=== PATIENT | male | born 1965 | race Caucasian/White ===

== ENCOUNTER 2018-09-21 07:40 | Inpatient (IN) ==
[2018-09-21] MEDS ORDERED: LORazepam 2 MG/4 ML VIAL IV STA (08:26)
[2018-09-21] MEDS ORDERED: MULTI-VITAMIN INFUSION 10 ML, THIAMINE HCL 100 MG, FOLIC ACID 1 MG in SODIUM CHLORIDE 0... IV SCH (08:30)
[2018-09-21 08:37] LABS: Basophils # (auto) 0.12 K/uL (0-0.2); Basophils % (auto) 1.9 %; Eosinophils # (auto) 0.05 K/uL (0-0.5); Eosinophils % (auto) 0.8 %; Hematocrit (blood only) 44.8 % (42-52); Hemoglobin 16.1 g/dL (14.0-18.0); Immature Granulocytes # (auto) 0.01 K/uL (0.00-0.02); Immature Granulocytes % (auto) 0.2 %; Lymphocytes # (auto) 2.42 K/uL (1.2-3.4); Lymphocytes % (auto) 38.2 %; Mean Corpuscular Hgb Conc 35.9 g/dL (32-36); Mean Corpuscular Volume 93.5 fL (80-100); Mean Platelet Volume 8.6 fL (7.4-10.4); Monocytes # (auto) 0.51 K/uL (0.11-0.59); Neutrophils # (auto) 3.23 K/uL (1.4-6.5); Neutrophils % (auto) 50.9 %; Platelet Count 215 K/uL (130-400); RDW Coefficient of Variation 14.8 % (11.5-14.5); RDW Standard Deviation 50.6 fL (36.4-46.3); Red Blood Count 4.79 M/uL (4.7-6.1); White Blood Count 6.34 K/uL (4.8-10.8)
[2018-09-21 08:55] LABS: Albumin Level 3.7 gm/dl (3.4-5.0); BUN Creatinine Ratio 11.5 (10-20); Calcium 8.3 mg/dl (8.5-10.1); Creatinine Clr Calc Pharmacy 89.6 ml/min; Est GFR (African American) 92.7; Potassium 3.3 mmol/L (3.5-5.1)
--- NOTE | 2018-09-21 08:59 | Emergency Department Note ---
Entered by Cassy Magana acting as a scribe for History of Present Illness General Chief complaint: Mental Health Evaluation Stated complaint: WANTS TO KILL HIS SELF Time Seen by Provider: 09/21/18 08:04 Source: patient Mode of arrival: ambulatory Limitations: no limitations History of Present Illness Onset (ago): day(s) 6 Location: head (psych) Pain Consistency: + other (worsening) Quality: + other (psych, suicidial ideation) Associated symptoms: + other (The patient complains of suicidial ideation. ) The patient is a 53 year old male with a history of suicide attempt and alcohol abuse who presents to the ED with complaints of a worsening mental health issue that onset 6 days ago. He notes that he was brought to the ED by his landlord after speaking to him about his suicidal ideation. The patient states that he just wants to commit suicide. He notes that he quit his job in a [employer] shop 6 days ago due to a problem with his coworker and his drinking problem. The patient reports that he is not sure what to do with himself. He notes that he went into his car yesterday, which was parked outside with the windows up. He states that he put a sock into the tailpipe hoping to poison himself with carbon monoxide. The patient reports that he was in the car for 12 hours and it did not work. He states that he drinks a liter of vodka every day and has been doing this for years. He reports that his last drink was 2 hours ago. The patient denies drug use. The patient states that he does not eat much. Home Medications Home Medications Medication Instructions Recorded Confirmed Type citalopram [Celexa] 40 mg PO HS 06/26/18 09/21/18 History trazodone 50 mg PO HS PRN 06/26/18 09/21/18 History Allergies Allergy/AdvReac Type Severity Reaction Status Date / Time No Known Allergies Allergy Unverified 09/21/18 10:46 Past Med/Surg History Medical History Suicide attempt Suicide ideation Alcohol abuse (Acute) No pertinent family history Surgical History No pertinent past surgical history Family History Other No pertinent family history Social History Preferred Language: Singaporean Communication Ability: Effective Visual Impairment: No Limitations Hearing Ability: Normal current occupational status: unemployed Feels Safe at Home: Yes Smoking Status: Never smoker Hx Alcohol Use: Yes Hx Substance Use: No Review of Systems See HPI for pertinent positives & negatives. and A total of 10 systems reviewed and were otherwise negative Physical Exam Vital Signs Vital Signs - 24 hr 09/21/18 07:43 09/21/18 08:03 09/21/18 13:15 Temperature 36.7 C Temperature Source Oral Oral Sepsis Recent Fever Within 48 Hours No Sepsis New/Unexplained Change in Mental Status No Sepsis Action Taken by Nursing No Action Required Pulse Rate 146 H Pulse Rate [Apical] 88 Respiratory Rate 20 20 Blood Pressure 122/81 Blood Pressure [Left Arm] 124/81 Blood Pressure Mean 94 Blood Pressure Mean [Left Arm] 95 Pulse Oximetry 95 97 Oxygen Delivery Method Room Air Room Air 09/21/18 15:09 Temperature Temperature Source Sepsis Recent Fever Within 48 Hours Sepsis New/Unexplained Change in Mental Status Sepsis Action Taken by Nursing Pulse Rate Pulse Rate [Apical] 133 H Respiratory Rate 18 Blood Pressure Blood Pressure [Left Arm] 138/88 Blood Pressure Mean Blood Pressure Mean [Left Arm] 104 Pulse Oximetry 97 Oxygen Delivery Method Room Air CONSTITUTIONAL/VITAL SIGNS: Reviewed / noted above. GENERAL: Non-toxic in appearance. INTEGUMENTARY: Warm, dry, and [place]. HEAD: Normocephalic. EYES: without scleral icterus or trauma. ENT/OROPHARYNX: clear and moist. LYMPHADENOPATHY/NECK: Is supple without lymphadenopathy or meningismus. RESPIRATORY: Lungs clear and equal. CARDIOVASCULAR: Regular rate and rhythm. GI/ABDOMEN: Soft and nontender. No organomegaly or pulsatile mass. No rebound or guarding. Normal bowel sounds. EXTREMITIES: Warm and well perfused. BACK: No CVA tenderness. NEUROLOGICAL: Intact without focal deficits. PSYCHIATRIC: normal affect. MUSCULOSKELETAL: Normally developed with good muscle tone. Course 08: Past medical records reviewed. The patient was evaluated in room A06. A complete history and physical examination was performed. 1500: The patient was signed out to Dr. Ac at the change of shifts. Administered Medications Discontinued Medications Lorazepam (Ativan) 2 mg in 4 mls @ 4 mls/min IV NOW STA Stop: 09/21/18 08:27 Last Admin: 09/21/18 09:44 Dose: 4 mls/min Documented by: [id number] Multivitamins 10 ml/ Thiamine HCl 100 mg/ Folic Acid 1 mg/Sodium Chloride 1,011.2 mls @ 1,011.2 mls/hr IV .Q1H RADHA Stop: 09/21/18 09:29 Last Infusion: 09/21/18 11:13 Dose: 0 mls/hr Documented by: [id number] Admin: 09/21/18 09:44 Dose: 1,011.2 mls/hr Documented by: [id number] Medical Decision Making Differential Diagnosis Differential diagnoses Mood disorder, infection, hypoglycemia, electrolyte abnormalities, cardiac sources, intracerebral event, toxicologic, neurologic, as well as others etiologies were considered. Medical Records Attestation: I reviewed the patient's medical records. Home Medications Current Medication List: was personally reviewed by me Laboratory Data Attestation: I reviewed the patient's lab results. Result diagrams: 09/21/18 08:10 09/21/18 08:10 Lab Results 09/21/18 09/21/18 09/21/18 Range/Units 08:10 08:10 08:10 WBC 6.34 (4.8-10.8) K/uL RBC 4.79 (4.7-6.1) M/uL Hgb 16.1 (14.0-18.0) g/dL Hct 44.8 (42-52) % MCV 93.5 (80-100) fL MCH 33.6 (25-34) pg MCHC 35.9 (32-36) g/dL RDW Std Deviation 50.6 H (36.4-46.3) fL RDW Coeff of Lorie 14.8 H (11.5-14.5) % Plt Count 215 (130-400) K/uL MPV 8.6 (7.4-10.4) fL Immature Gran % (Auto) 0.2 % Neut % (Auto) 50.9 % Lymph % (Auto) 38.2 % Craven % (Auto) 8.0 % Eos % (Auto) 0.8 % Baso % (Auto) 1.9 % Immature Gran # (Auto) 0.01 (0.00-0.02) K/uL Neut # (Auto) 3.23 (1.4-6.5) K/uL Lymph # (Auto) 2.42 (1.2-3.4) K/uL Craven # (Auto) 0.51 (0.11-0.59) K/uL Eos # (Auto) 0.05 (0-0.5) K/uL Baso # (Auto) 0.12 (0-0.2) K/uL Sodium 147 H (136-145) mmol/L Potassium 3.3 L (3.5-5.1) mmol/L Chloride 108 H (98-107) mmol/L Carbon Dioxide 21 (21-32) mmol/L Anion Gap 18.0 H (3-11) BUN 12 (7-18) mg/dl Creatinine 1.07 (0.6-1.4) mg/dl Est Cr Clr Drug Dosing 89.6 ml/min Est GFR ( Amer) 92.7 Est GFR (Non-Af Amer) 80.0 BUN/Creatinine Ratio 11.5 (10-20) Glucose 75 (70-99) mg/dl Calcium 8.3 L (8.5-10.1) mg/dl Total Bilirubin 0.6 (0.2-1) mg/dl AST 28 (15-37) U/L ALT 41 (12-78) U/L Alkaline Phosphatase 71 (45-117) U/L Total Protein 7.9 (6.4-8.2) gm/dl Albumin 3.7 (3.4-5.0) gm/dl Globulin 4.2 H (2.5-4.0) gm/dl Albumin/Globulin Ratio 0.9 (0.9-2) TSH 1.510 (0.300-4.500) uIu/ml Urine Color Urine Appearance (Clear) Urine pH (4.5-7.5) Ur Specific Cheney (1.000-1.030) Urine Protein (Negative) Urine Glucose (UA) (Negative) Urine Ketones (Negative) Urine Blood (Negative) Urine Nitrite (Negative) Urine Bilirubin (Negative) Urine Urobilinogen (Negative) Ur Leukocyte Esterase (Negative) Urine WBC (Auto) (0-5) /hpf Urine RBC (Auto) (0-4) /hpf U Hyaline Cast (Auto) (0-5) /lpf U Epithel Cells (Auto) (0-5) /lpf Urine Bacteria (Auto) (Negative) Urine Mucus (None Prsent) Salicylates 1.7 L (2.8-20) mg/dl Urine Opiates Screen (Neg) Ur Methadone, Qual (Neg) Acetaminophen < 2 L (10-30) ug/ml Urine Barbiturates (Neg) Ur Phencyclidine (PCP) (Neg) U Amphetamin/Meth Scrn (Neg) MDMA (Ecstasy) Screen (Neg) U Benzodiazepines Scrn (Neg) Ur Cocaine Metabolite (Neg) U Marijuana (THC) Screen (Neg) Ethyl Alcohol mg/dL (0-3) mg/dl 09/21/18 09/21/18 09/21/18 Range/Units 08:15 08:15 09:24 WBC (4.8-10.8) K/uL RBC (4.7-6.1) M/uL Hgb (14.0-18.0) g/dL Hct (42-52) % MCV (80-100) fL MCH (25-34) pg MCHC (32-36) g/dL RDW Std Deviation (36.4-46.3) fL RDW Coeff of Lorie (11.5-14.5) % Plt Count (130-400) K/uL MPV (7.4-10.4) fL Immature Gran % (Auto) % Neut % (Auto) % Lymph % (Auto) % Craven % (Auto) % Eos % (Auto) % Baso % (Auto) % Immature Gran # (Auto) (0.00-0.02) K/uL Neut # (Auto) (1.4-6.5) K/uL Lymph # (Auto) (1.2-3.4) K/uL Craven # (Auto) (0.11-0.59) K/uL Eos # (Auto) (0-0.5) K/uL Baso # (Auto) (0-0.2) K/uL Sodium (136-145) mmol/L Potassium (3.5-5.1) mmol/L Chloride (98-107) mmol/L Carbon Dioxide (21-32) mmol/L Anion Gap (3-11) BUN (7-18) mg/dl Creatinine (0.6-1.4) mg/dl Est Cr Clr Drug Dosing ml/min Est GFR ( Amer) Est GFR (Non-Af Amer) BUN/Creatinine Ratio (10-20) Glucose (70-99) mg/dl Calcium (8.5-10.1) mg/dl Total Bilirubin (0.2-1) mg/dl AST (15-37) U/L ALT (12-78) U/L Alkaline Phosphatase (45-117) U/L Total Protein (6.4-8.2) gm/dl Albumin (3.4-5.0) gm/dl Globulin (2.5-4.0) gm/dl Albumin/Globulin Ratio (0.9-2) TSH (0.300-4.500) uIu/ml Urine Color Dark Yellow Urine Appearance Clear (Clear) Urine pH 5.0 (4.5-7.5) Ur Specific Cheney 1.022 (1.000-1.030) Urine Protein Trace H (Negative) Urine Glucose (UA) Negative (Negative) Urine Ketones 1+ H (Negative) Urine Blood Negative (Negative) Urine Nitrite Negative (Negative) Urine Bilirubin Negative (Negative) Urine Urobilinogen Negative (Negative) Ur Leukocyte Esterase Negative (Negative) Urine WBC (Auto) 1-5 (0-5) /hpf Urine RBC (Auto) 0-4 (0-4) /hpf U Hyaline Cast (Auto) 5-10 H (0-5) /lpf U Epithel Cells (Auto) 10-20 H (0-5) /lpf Urine Bacteria (Auto) Negative (Negative) Urine Mucus Present A (None Prsent) Salicylates (2.8-20) mg/dl Urine Opiates Screen Neg (Neg) Ur Methadone, Qual Neg (Neg) Acetaminophen (10-30) ug/ml Urine Barbiturates Neg (Neg) Ur Phencyclidine (PCP) Neg (Neg) U Amphetamin/Meth Scrn Neg (Neg) MDMA (Ecstasy) Screen Neg (Neg) U Benzodiazepines Scrn Neg (Neg) Ur Cocaine Metabolite Neg (Neg) U Marijuana (THC) Screen Neg (Neg) Ethyl Alcohol mg/dL 328.0 H (0-3) mg/dl ECG Data Attestation: I personally reviewed and interpreted this ECG as follows: Indication: tachycardia Rate (beats per minute): 103 Rhythm: sinus tachycardia Findings: no ST elevation and no ectopy Blood Pressure Blood Pressure Findings: Normal blood pressure MDM Narrative sThis is a 53-year-old male who presents to the ED with a chief complaint of feeling suicidal. The patient is an alcoholic. He states that he drinks about 1 L of vodka daily. The patient states that he quit his job 6 days ago. He was trying to commit suicide yesterday by putting a sock in his tailpipe and stayed in his car with his windows up for about 12 hours. He states that after he figured out that this did not work, he went into the house. His landlord saw him this morning and encouraged him to come to the ED for evaluation. The patient states that his last alcohol consumption was 2 hours ago. The patient denies any other symptoms. His initial heart rate was 146 on triage. His twelve-lead EKG shows a sinus tach at a rate of 103. The patient was provided with a liter of normal saline with IV thiamine and IV folate in the form of a banana bag. The patient was also given Ativan 2 mg IV as he felt like he was going through some withdrawal. The patient is medically cleared at 6pm from alcohol. Signed out to Dr. Ac. Impression & Plan Suicidal ideation, Alcoholism Discharge Plan Visit Data Chief Complaint: Mental Health Evaluation Stated Complaint: WANTS TO KILL HIS SELF ED Provider: Nithin Ac Discharge Problem: Suicidal ideation, Alcoholism Patient Disposition: Still a Patient Forms Stand Alone Forms: My [facility] Prescriptions Prescriptions: No Action citalopram [Celexa] 40 mg Tablet 40 mg PO HS RF: 0 trazodone 50 mg Tablet 50 mg PO HS PRN (Reason: Sleep) RF: 0 Referrals Referrals: PCP,NO [Primary Care Provider] - The scribe's documentation has been prepared under my direction and personally reviewed by me in its entirety. I confirm that the note above accurately reflects all work, treatment, procedures, and medical decision making performed by me.
[2018-09-21 09:01] LABS: Acetaminophen < 2 ug/ml (10-30); Salicylate 1.7 mg/dl (2.8-20)
[2018-09-21 09:05] LABS: Albumin Globulin Ratio 0.9 (0.9-2); Bilirubin,Total 0.6 mg/dl (0.2-1); Globulin 4.2 gm/dl (2.5-4.0); Total Protein 7.9 gm/dl (6.4-8.2)
[2018-09-21 09:16] LABS: Appearance Urine Clear (Clear); Bacteria Urine Automated Negative (Negative); Blood Urine Negative (Negative); Color Urine Dark Yellow; Glucose Urine UA Negative (Negative); Ketones Urine 1+ (Negative); Leukocyte Esterase Urine Negative (Negative); Nitrite Urine Negative (Negative); Protein Urine Trace (Negative); RBC Urine Automated 0-4 /hpf (0-4); Specific Gravity Urine 1.022 (1.000-1.030); Urobilinogen Urine Negative (Negative)
[2018-09-21 09:29] LABS: Bilirubin Urine Negative (Negative); Ictotest Urine Negative (Negative)
[2018-09-21 09:31] LABS: Mucus Urine Present (None Prsent)
[2018-09-21 09:43] LABS: Amphetamines+Metham, Urine Neg (Neg); Barbiturates, Urine Neg (Neg); Benzodiazepine, Urine Neg (Neg); Cocaine, Urine Neg (Neg); MDMA (Ecstacy), Urine Neg (Neg); Methadone, Urine Neg (Neg); Opiate, Urine Neg (Neg); Phencyclidine, Urine Neg (Neg)
[2018-09-21] MEDS ORDERED: chlordiazePOXIDE HCl 25 MG CAP PO ONE ×2 (15:12→19:30)
[2018-09-21] MEDS ORDERED: SODIUM CHLORIDE 0.9% 1000ML 500 ML IV ONE (15:12)
[2018-09-21] MEDS ORDERED: LORazepam 1 MG/2 ML VIAL IV STA (15:12)
--- NOTE | 2018-09-21 15:43 | Emergency Department Note ---
ED Visit Note I assumed care at the change of shift, the patient was awaiting a psychiatric evaluation once his alcohol had cleared. I received a phone call from the nursing staff. Patient's heart rate was in the 130s, he had shakes and seemed to be showing signs of alcohol withdrawal. On assessment, the patient was shaky and seemed to be withdrawing, he was awake and did not seem in significant distress. The patient was given IV Ativan, oral Librium, IV saline. I do think the patient is going to require a medical hospitalization for alcohol withdrawal. He is not going to be able to go directly to a psychiatry facility. I spoke with him about the hospitalization, he did consent. The on-call hospitalist has been consulted. I did speak with case management. Patient is aware of his findings. .
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
[2018-09-21] MEDS ORDERED: TRAZODONE HCL 50 MG TAB PO PRN (18:37)
[2018-09-21] MEDS ORDERED: ACETAMINOPHEN 325 MG TAB PO PRN (18:37)
[2018-09-21] MEDS ORDERED: ONDANSETRON INJ 2 MG/ML 2 ML VIAL IV PRN (18:37)
[2018-09-21] MEDS: SODIUM CHLORIDE 0.9% 1000ML 1,000 ML IV SCH (19:07)
[2018-09-21] MEDS ORDERED: POTASSIUM CHLORIDE 20 MEQ TABCR PO ONE (19:30)
[2018-09-21] MEDS: LORazepam 0.5 MG/1 ML VIAL IV PRN (19:54)
[2018-09-21 20:43] LABS: Partial Thromboplastin Ratio 0.9; Partial Thromboplastin Time 25.4 Seconds (21.0-31.0); Prothrombin Time 10.6 Seconds (9.0-12.0)
[2018-09-21] MEDS ORDERED: CITALOPRAM 40 MG TAB PO SCH (21:00)
[2018-09-22] MEDS: LORazepam 0.5 MG/1 ML VIAL IV PRN ×2 (03:55→11:10)
[2018-09-22] MEDS: SODIUM CHLORIDE 0.9% 1000ML 1,000 ML IV SCH (03:55)
[2018-09-22] MEDS ORDERED: LORazepam 1 MG/2 ML VIAL IV STA (06:03)
[2018-09-22 08:51] LABS: Hemoglobin 14.2 g/dL (14.0-18.0); Mean Corpuscular Hgb Conc 35.5 g/dL (32-36); Mean Corpuscular Volume 92.8 fL (80-100); Mean Platelet Volume 8.9 fL (7.4-10.4); Platelet Count 161 K/uL (130-400); RDW Coefficient of Variation 14.4 % (11.5-14.5); Red Blood Count 4.31 M/uL (4.7-6.1); White Blood Count 5.98 K/uL (4.8-10.8)
[2018-09-22] MEDS: FOLIC ACID 400 MCG TAB PO SCH (08:59)
[2018-09-22] MEDS: MULTIVITAMIN TAB PO SCH (08:59)
[2018-09-22] MEDS: ENOXAPARIN INJ 40 MG/0.4 ML SYR SQ SCH (08:59)
[2018-09-22] MEDS ORDERED: THIAMINE HCL 100 MG TAB PO SCH (09:00)
[2018-09-22 09:36] LABS: Albumin Globulin Ratio 0.9 (0.9-2); Albumin Level 3.4 gm/dl (3.4-5.0); BUN Creatinine Ratio 10.7 (10-20); Bilirubin Direct 0.3 mg/dl (0-0.2); Bilirubin,Total 0.9 mg/dl (0.2-1); Calcium 7.7 mg/dl (8.5-10.1); Creatinine Clr Calc Pharmacy 129.6 ml/min; Est GFR (African American) 123.8; Est GFR (Non-African American) 106.8; Globulin 3.6 gm/dl (2.5-4.0); Potassium 3.7 mmol/L (3.5-5.1)
[2018-09-22] MEDS ORDERED: LORazepam 3 MG/6 ML VIAL IV PRN (12:42)
[2018-09-22] MEDS ORDERED: LORazepam 1 MG/2 ML VIAL IV PRN (12:42)
[2018-09-22] MEDS ORDERED: GABAPENTIN 1200MG ALCOHOL WITHDRAWAL LOAD PO STA (12:42)
[2018-09-22] MEDS ORDERED: ATIVAN IV ALCOHOL WITHDRAWL IV SCH (12:45)
[2018-09-22] MEDS ORDERED: GABAPENTIN 600 MG TAB PO SCH (12:45)
[2018-09-22] MEDS: D5NSS + 20MEQ KCL 20 MEQ/1,000 ML BAG IV SCH ×2 (13:48→21:53)
--- NOTE | 2018-09-22 15:11 | Psychiatric Consultation ---
Date of Consultation September 22, 2018 Impression / Recommendations Impression 53 yr old with alcohol use disorder, with current heavy drinking , Major depressive disorder, recurrent, severe without psychotic features admitted with suicidal attempt by CO and alcohol withdrawal in context of active AUD and worsening depression. Pt states Celexa 40mg, trazodone 50mg Hs prn and sobriety with supports are main alleviating factors. financial concerns, recent ceasing job, being out of area where established and lack of 12 steps meetings and lack of taking meds recently and of mother in December all aggravating factors. pt still with active SI with plans of how to kill self by jumping off building among them, with pt seeking to not act on such thoughts but not able to keep self from doing it without restriction of being in the hospital at this time. h/o 2 times years ago that could be hypomanic but not clear and no h/o bipolar d/o per pt. pt watns to resume clexea 40mg a day and is seeking inpt psychiatric care and to resume 12 step meetings and wanting to address his housing situation. P: continue 1:1 for SI concerns QTC above 500 on September 21, repeat EKG ordered for today and contunes to show elevated QtC not changed from yesterday. once QTc normalized and below 450 resume Celexa.= at outpt dose of 40mg a day, holding for now, ordered repeat EKG. aim to resume trazodone prn, but given Librium and Ativan and gabapentin will hold for now. pt is in need for inpt psychiatric care and is indicating seeking vol 201 admission once medically clear. will follow Inventory Assets Strengths: insightfull, seeking help, Needs: housing situation needs to be addressed, resuming medication, sobriety and supports to maintain, outpt providers, Risk Factors Assessment Male: Yes : Yes Do You Have Access To A Gun?: No Mental Health Diagnoses: Yes Substance Use Disorders: Yes Previous Attempt: Yes Previous Attempt; Highly Lethal: Yes Previous Psychiatric Hospitalization: Yes Psych History Identifying Data 53 yr old with h/o Major Depression Disorder, Recurrent and alcohol use disorder who has h/o taking celexa 40mg a day with limited med compliance recently who recently came to [facility] from [facility] who has resumed drinking heavy alcohol usage up most days in past 2 months who was admitted medically after a CO by MVA suicide attempt with also alcohol withdrawal concerns. H/O DTs x 2 in the past. Takes trazodone 50mg hs usually but not in past month. Chief Complaint ". psychiatry consults for suicide attempt History of Present Illness This is a 53-year-old male admitted for suicide attempt by CO by MV and alcohol withdrawal concerns with past medical history of major depressive disorder and insomnia concerns, with h/o Celexa being taken for many years, raised to 40mg a day from 20mg a day about 2 or so years ago with trazodone 50mg Hs (prn but taken most nights in general) started about 2 years ago. Pt has Alcohol use disorder and has the DT's 2 separate times and has attended substance rehab for alcohol use concerns 3 times, most recently [id number]. HE remained sober till July 2018, when he came to the [facility] and drank alcohol daily up to 1/2-1 litter of vodka a day for July into August with some days abstaining alcohol use in August. His depression has worsened severely with terrible sleep, loss of interest, severe guilt, worsening fatigue, poor concentration, loss of appetite, depressed mood, impaired sense of hope and feeling worthless with suicidal ideation. He attempted suicide by CO through his car yesterday morning and after the attempted failed he spoke to his landlord who helped him get to the hospital. He has had times of significant SI at times of doing worse over noble past years with one prior time of loading a shotgun with plan to shoot himself approx 15 years ago leading to one of his 2 past psych admissions. He finds sobriety and Celexa and trazodone and 12 step meetings and having stability and purpose in his life alleviating factors. His mother's in December 2017 has been a main aggravating factor as is his financial concerns and lack of steady employment. He quit a recent job a week ago. He is concern about losing his current housing over not being able to pay his rent He denied psychotic features outside of the 2 times he had DT's. He endorsed at least two times that was he over driven in his activities awith impaired sleep and perhaps too good of a mood but not in past few years. 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 He denied any recent hypomanic like symptoms. He denied s/e to celexa or trazodone, and tends to hold those meds when drinking alcohol. Patient moved from that region to [facility] in attempts to go to [employer] to obtain his masters in secondary education. 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 Past Psychiatric History Previous Psych History: as above in HPI Current Psychiatric Diagnosis: MDD R, S AUD Outpatient Services: none currently, was seeing counselor in [facility] but not for past number of months and last seen a provider for med management quite a number of months ago (Nga Franco) h/o 12 step meetings but not since in [place], failed Lexapro trial in past 2 prior psych admissions approx 15 years ago Do You Have Access To A Gun?: No History of Previous Suicide Attempt: Yes Describe Attempts in the Past: loaded a shotgun approx 15 years ago Allergies Allergy/AdvReac Type Severity Reaction Status Date / Time No Known Allergies Allergy Unverified 09/21/18 10:46 Home Medications Home Medications Medication Instructions Recorded Confirmed Type citalopram [Celexa] 40 mg PO HS 06/26/18 09/21/18 History trazodone 50 mg PO HS PRN 06/26/18 09/21/18 History Personal History Living Arrangements: Apartment (pt fearful of losing housing over not able to pay rent ) Born In: [place] Highest Grade Completed: College ([employer] BS) Employment Status: Unemployed (quit working at [employer] a week prior, worked at [employer] previously to that ) Beliefs That Will Affect Care: None Patient History Medical History Hypokalemia Hypernatremia Alcohol withdrawal Suicide attempt Alcohol abuse (Acute) No pertinent family history Surgical History No pertinent past surgical history Family History Other No pertinent family history Social History Preferred Language: Kosovan Communication Ability: Effective Visual Impairment: No Limitations Hearing Ability: Normal Beliefs That Will Affect Care: None Current Living Situation: Other Current Living Situation Comment: [place] current occupational status: unemployed Other Information That Helps Us Care for You: No Feels Safe at Home: Yes Safety Concerns: Feels Safe At This Time Smoking Status: Never smoker Tobacco Type: smokeless tobacco Do You Dip or Chew Tobacco: Yes Second Hand Exposure: No Tobacco Cessation Education Requested by Patient: No Hx Alcohol Use: Yes Alcohol type: hard liquor Hx Substance Use: No Physical Exam Psychiatric: Orientation: alert and oriented x 3 laying in hospital bed, wearing gown Eye Contact: + fair eye contact Motor Behavior: + tremor (when arms extended out, R greater then L mild at first then moderate) Speech: normal rate/rhythm/volume of speech Affect: + depressed affect Mood: + depressed mood Thought Process: goal directed thought process and linear/logical thought process Thought Content: + guilt Suicidal Thoughts: + reports suicidal thoughts and + reports suicidal plan Homicidal Thoughts: + reports homicidal thoughts Hallucinations: no auditory hallucinations, no visual hallucinations and no tactile hallucinations Cognition: recent memory grossly intact and remote memory grossly intact concentration and attention fair world backwards reverse o and r and realized and self corrected Estimated Intelligence: average estimated intelligence Insight: + fair insight Judgement: + impaired judgement Vital Signs (Past 24 Hours): Last Vital Signs Temp 37.1 C 09/22/18 11:02 Pulse 81 09/22/18 11:02 Resp 21 09/22/18 11:02 BP 149/58 H 09/22/18 11:02 Pulse Ox 96 09/22/18 11:02 Results & Data Medications Administered Citalopram Hydrobromide (Celexa) 40 mg PO HS RADHA Stop: 10/21/18 20:59 Last Admin: 09/21/18 19:48 Dose: 40 mg Documented by: [id number] Enoxaparin Sodium (Lovenox) 40 mg SQ QAM RADHA Stop: 10/22/18 08:59 Last Admin: 09/22/18 08:59 Dose: 40 mg Documented by: [id number] Folic Acid (Folvite) 400 mcg PO QAM RADHA Stop: 10/22/18 08:59 Last Admin: 09/22/18 08:59 Dose: 400 mcg Documented by: [id number] Lorazepam (Ativan) 0.5 mg in 1 mls @ 1 mls/min IV Q4H PRN PRN Reason: Alcohol Withdrawal Stop: 10/21/18 18:36 Last Admin: 09/22/18 11:10 Dose: 1 mls/min Documented by: [id number] Admin: 09/22/18 03:55 Dose: 1 mls/min Documented by: [id number] Admin: 09/21/18 19:54 Dose: 1 mls/min Documented by: [id number] Potassium Chloride/Dextrose/Sod Cl (D5nss + 20meq Kcl) 20 meq in 1,000 mls @ 100 mls/hr IV .Q10H [facility] Stop: 10/22/18 12:44 Last Admin: 09/22/18 13:48 Dose: 100 mls/hr Documented by: [id number] Multivitamins (Multivitamin Tab) 1 tab PO QAM [facility] Stop: 10/22/18 08:59 Last Admin: 09/22/18 08:59 Dose: 1 tab Documented by: [id number] Ondansetron HCl (Zofran) 4 mg IV Q4H PRN PRN Reason: Nausea And Vomiting Stop: 10/21/18 18:36 Last Admin: 09/22/18 05:37 Dose: 4 mg Documented by: [id number]
[2018-09-22] MEDS: LORazepam 2 MG/4 ML VIAL IV PRN (16:04)
[2018-09-22] MEDS: GABAPENTIN 600 MG TAB PO SCH (17:30)
--- NOTE | 2018-09-22 18:59 | Hospitalist Progress Note ---
Date of Service September 22, 2018 Assessment & Plan (1) Alcohol withdrawal: Active withdrawal at this time. Severe intake at home - drinks either 12-pack beer/day and/or 1 L vodka. Anticipate that withdrawal will be severe. No evidence of DTs at this time however. Start gabapentin protocol. Ativan PO/IV prn per alcohol withdrawal protocol. Resume IVF (D5NS w/ KCL). Increase thiamine to 200mg BID. MVI/folic acid. Check mag/bmp am. Telemetry. Present on Admission?: Yes (2) Suicidal ideation: Attempted suicide by carbon monoxide poisoning and alcohol intoxication. 1:1 bedside sitter with suicide checks. Psych consult appreciated; will need inpatient psych treatment following alcohol withdrawal. Psychosocial stressors - mother recently, lost job 2 weeks ago, etc. (3) Hypernatremia: resolved. Cont IVF, however, due to active etoh withdrawal. (4) Hypokalemia: Resolved check mag level AM (5) Major depression: appreciate psych consult alcoholism making his depression worse will need inpatient psych treatment (6) DVT prophylaxis: lovenox daily Subjective patient reports sweats, shakes and anxiety. he is not delirious during the visit, however. when asked if he is desiring to withdraw from alcohol in order to remain sober he stated yes. he stated his withdrawal usually lasts 3-4 days. admits to depression for 1-2 years. last saw psych several months ago in [facility]. Review of Systems Constitutional: + sweats and + fatigue; no fever Respiratory: no dyspnea Cardiovascular: no chest pain Gastrointestinal: no abdominal pain Physical Exam Constitutional: average body habitus and + diaphoretic; no acute distress shaky/tremors ENMT: external ear and nose normal, oropharynx normal Respiratory: normal respiratory effort, lungs clear to auscultation Cardiovascular: Rate/Rhythm: regular rate and regular rhythm Heart Sounds: normal S1 and normal S2; no murmur Vessels: posterior tibial pulses present and dorsalis pedis pulses present; no JVD Gastrointestinal (Abdomen): normal bowel sounds, soft, nontender, no hepatosplenomegaly Skin: diaphoretic Psychiatric: Orientation: alert and oriented x 3 Affect: + anxious affect Results & Data Vital Signs (Past 12 Hours) Vital Signs Temp Pulse Pulse Resp BP Pulse Ox 09/22/18 15:44 37.1 C 85 16 156/101 H 96 09/22/18 11:02 37.1 C 81 21 149/58 H 96 09/22/18 07:04 37.1 C 95 H 22 157/97 H 93 09/22/18 07:00 80 Laboratory Results Laboratory Results - last 24 hr 09/21/18 09/22/18 09/22/18 20:18 08:33 08:33 WBC 5.98 RBC 4.31 L Hgb 14.2 Hct 40.0 L MCV 92.8 MCH 32.9 MCHC 35.5 RDW Std Deviation 49.0 H RDW Coeff of Lorie 14.4 Plt Count 161 MPV 8.9 PT 10.6 INR 1.0 APTT 25.4 PTT Ratio 0.9 Sodium 141 Potassium 3.7 Chloride 105 Carbon Dioxide 26 Anion Gap 10.0 BUN 8 Creatinine 0.74 D Est Cr Clr Drug Dosing 129.6 Est GFR ( Amer) 123.8 Est GFR (Non-Af Amer) 106.8 BUN/Creatinine Ratio 10.7 Glucose 95 Calcium 7.7 L Total Bilirubin 0.9 Direct Bilirubin 0.3 H AST 24 ALT 32 Alkaline Phosphatase 62 Total Protein 7.0 Albumin 3.4 Globulin 3.6 Albumin/Globulin Ratio 0.9 PG Care Time/CCT Total # of Minutes Spent Total Time Spent with Patient: Total time spent is greater than 50% in coordination of care (as documented) at patient's floor/unit and/or counseling patient: (1) Alcohol withdrawal Complication of substance-induced condition: uncomplicated Qualified Code(s): F10.230 - Alcohol dependence with withdrawal, uncomplicated (2) Major depression Major depression recurrence: unspecified whether recurrent Active/Remission status: currently active Major depression episode severity: unspecified Qual ified Code(s): F32.9 - Major depressive disorder, single episode, unspecified
[2018-09-22] MEDS: THIAMINE HCL 100 MG TAB PO SCH (21:53)
[2018-09-23] MEDS: GABAPENTIN 600 MG TAB PO SCH ×4 (00:03→23:59)
[2018-09-23] MEDS: LORazepam 2 MG/4 ML VIAL IV PRN ×2 (00:09→22:09)
[2018-09-23] MEDS: D5NSS + 20MEQ KCL 20 MEQ/1,000 ML BAG IV SCH ×2 (07:29→18:49)
[2018-09-23 08:08] LABS: BUN Creatinine Ratio 6.4 (10-20); Calcium 8.4 mg/dl (8.5-10.1); Creatinine Clr Calc Pharmacy 119.9 ml/min; Est GFR (African American) 119.9; Est GFR (Non-African American) 103.4; Magnesium 2.2 mg/dl (1.8-2.4); Potassium 3.6 mmol/L (3.5-5.1)
[2018-09-23] MEDS: ENOXAPARIN INJ 40 MG/0.4 ML SYR SQ SCH (08:17)
[2018-09-23] MEDS: MULTIVITAMIN TAB PO SCH (08:18)
[2018-09-23] MEDS: THIAMINE HCL 100 MG TAB PO SCH ×2 (08:19→21:16)
[2018-09-23] MEDS: FOLIC ACID 400 MCG TAB PO SCH (08:19)
[2018-09-23] MEDS: LORazepam 1 MG TAB PO PRN (08:20)
--- NOTE | 2018-09-23 19:16 | Hospitalist Progress Note ---
Date of Service September 23, 2018 Assessment & Plan (1) Alcohol withdrawal: Continues with active withdrawal. No DTs fortunately and mental status stable. Severe intake at home - drinks either 12-pack beer/day and/or 1 L vodka. Continue gabapentin protocol. Ativan PO/IV prn per alcohol withdrawal protocol. Continue D5NS w/ KCL IV fluids. Cont thiamine 200mg BID/MVI/folic acid. Electrolytes are stable. Cont tele status. (2) Suicidal ideation: Attempted suicide by carbon monoxide poisoning and alcohol intoxication prior to hospital admission. 1:1 bedside sitter with suicide checks. Psych consult appreciated; will need inpatient psych treatment following alcohol withdrawal. Psychosocial stressors - mother recently, lost job 2 weeks ago, etc. (3) Hypernatremia: resolved. Cont IVF due to etoh withdrawal. (4) Hypokalemia: Resolved Mag and K continue to be normal. (5) Major depression: appreciate psych consult alcoholism making his depression worse will need inpatient psych treatment following his medical stay for etoh withdrawal (6) DVT prophylaxis: lovenox daily progressing BMP in am obtain PT consult due to difficulty walking because of tremors Subjective feels a little better than yesterday less shaky less anxious tele still w/ episodes of sinus tach w/ activity mental status clear ativan working well for withdrawal sx's Review of Systems Constitutional: + fatigue (feels weak w/ walking; having to use walker) Respiratory: no dyspnea Cardiovascular: no chest pain Gastrointestinal: no abdominal pain, no nausea and no vomiting Physical Exam Constitutional: average body habitus and + diaphoretic; no acute distress ENMT: external ear and nose normal, oropharynx normal Respiratory: normal respiratory effort, lungs clear to auscultation Cardiovascular: Rate/Rhythm: regular rate and regular rhythm Heart Sounds: normal S1 and normal S2; no murmur Vessels: posterior tibial pulses present and dorsalis pedis pulses present; no JVD Gastrointestinal (Abdomen): normal bowel sounds, soft, nontender, no hepatosplenomegaly Neurologic: Motor/Sensory: + tremor (still present but not as severe) Psychiatric: Orientation: alert and oriented x 3 Affect: + anxious affect Results & Data Vital Signs (Past 12 Hours) Vital Signs Temp Pulse Pulse Resp BP Pulse Ox 09/23/18 19:08 36.8 C 90 18 146/94 H 96 09/23/18 15:21 36.6 C 85 18 144/88 H 96 09/23/18 15:04 93 H 09/23/18 11:06 36.3 C L 93 H 20 126/82 94 09/23/18 07:34 88 Laboratory Results Laboratory Results - last 24 hr 09/23/18 09/23/18 07:17 07:17 Sodium 143 Potassium 3.6 Chloride 108 H Carbon Dioxide 27 Anion Gap 8.0 BUN 5 L Creatinine 0.80 Est Cr Clr Drug Dosing 119.9 Est GFR ( Amer) 119.9 Est GFR (Non-Af Amer) 103.4 BUN/Creatinine Ratio 6.4 L Glucose 118 H Calcium 8.4 L Magnesium 2.2 Vitamin B12 651 PG Care Time/CCT Total # of Minutes Spent Total Time Spent with Patient: Total time spent is greater than 50% in coordination of care (as documented) at patient's floor/unit and/or counseling patient: (1) Major depression Active/Remission status: currently active Major depression episode severity: unspecified Major depression recurrence: unspecified whether recurrent Qualified Code(s): F32.9 - Major depressive disorder, single episode, u nspecified (2) Alcohol withdrawal Complication of substance-induced condition: uncomplicated Qualified Code(s): F10.230 - Alcohol dependence with withdrawal, uncomplicated
[2018-09-24] MEDS: D5NSS + 20MEQ KCL 20 MEQ/1,000 ML BAG IV SCH ×3 (03:37→23:52)
[2018-09-24 07:13] LABS: BUN Creatinine Ratio 5.2 (10-20); Calcium 8.6 mg/dl (8.5-10.1); Est GFR (African American) 127.4; Est GFR (Non-African American) 109.9; Potassium 3.5 mmol/L (3.5-5.1)
[2018-09-24] MEDS: THIAMINE HCL 100 MG TAB PO SCH ×2 (08:26→19:30)
[2018-09-24] MEDS: MULTIVITAMIN TAB PO SCH (08:26)
[2018-09-24] MEDS: FOLIC ACID 400 MCG TAB PO SCH (08:27)
[2018-09-24] MEDS: ENOXAPARIN INJ 40 MG/0.4 ML SYR SQ SCH (08:27)
[2018-09-24] MEDS: GABAPENTIN 600 MG TAB PO SCH ×2 (11:55→23:53)
[2018-09-24] MEDS: LORazepam 1 MG TAB PO PRN (12:43)
--- NOTE | 2018-09-24 18:41 | Hospitalist Progress Note ---
Date of Service September 24, 2018 Assessment & Plan (1) Alcohol withdrawal: Resolving / in latter stages. No DTs fortunately and mental status stable. Severe intake at home - drinks either 12-pack beer/day and/or 1 L vodka. Continue gabapentin protocol. Ativan PO/IV prn per alcohol withdrawal protocol. Continue D5NS w/ KCL IV fluids but cut rate to 50cc/hour. Cont thiamine 200mg BID/MVI/folic acid. Electrolytes are stable again today on BMP. Cont tele status. (2) Suicidal ideation: Attempted suicide by carbon monoxide poisoning and alcohol intoxication prior to hospital admission. 1:1 bedside sitter with suicide checks. Psych consult appreciated; will need inpatient psych treatment following alcohol withdrawal. Psychosocial stressors - mother recently, lost job 2 weeks ago, etc. (3) Hypernatremia: resolved. Cont IVF due to etoh withdrawal but cut fluid rate to 50cc/hr. Appetite/oral intake improved. (4) Hypokalemia: Resolved Mag and K continue to be normal. (5) Major depression: appreciate psych consult alcoholism making his depression worse will need inpatient psych treatment following his medical stay for etoh withdrawal (6) DVT prophylaxis: lovenox daily walked 200 feet today with PT ([facility] only, no walker/etc) was shaky/unsteady this should improve as withdrawal wraps up Subjective pt feeling good today shakes are much better more steady on feet he worked with PT today and felt that he did well appetite improved sweats also better Review of Systems Constitutional: no fever Respiratory: no dyspnea Cardiovascular: no chest pain Gastrointestinal: no abdominal pain, no nausea and no vomiting Physical Exam Constitutional: average body habitus; no acute distress ENMT: external ear and nose normal, oropharynx normal Respiratory: normal respiratory effort, lungs clear to auscultation Cardiovascular: Rate/Rhythm: regular rate and regular rhythm Heart Sounds: normal S1 and normal S2; no murmur Vessels: posterior tibial pulses present and dorsalis pedis pulses present; no JVD Gastrointestinal (Abdomen): normal bowel sounds, soft, nontender, no hepatosplenomegaly Neurologic: Motor/Sensory: + tremor (minimal) Psychiatric: Orientation: alert and oriented x 3 Results & Data Vital Signs (Past 12 Hours) Vital Signs Temp Pulse Pulse Resp BP Pulse Ox 09/24/18 18:23 36.5 C 109 H 20 141/85 H 94 09/24/18 15:49 81 09/24/18 15:09 37.0 C 145 H 18 129/97 95 09/24/18 10:58 36.6 C 98 H 14 112/80 93 09/24/18 07:27 78 09/24/18 06:52 36.8 C 82 16 130/82 93 Laboratory Results Laboratory Results - last 24 hr 09/24/18 06:23 Sodium 142 Potassium 3.5 Chloride 109 H Carbon Dioxide 26 Anion Gap 7.0 BUN 4 L Creatinine 0.69 Est Cr Clr Drug Dosing 139.0 Est GFR ( Amer) 127.4 Est GFR (Non-Af Amer) 109.9 BUN/Creatinine Ratio 5.2 L Glucose 100 H Calcium 8.6 PG Care Time/CCT Total # of Minutes Spent Total Time Spent with Patient: Total time spent is greater than 50% in c oordination of care (as documented) at patient's floor/unit and/or counseling patient: (1) Major depression Active/Remission status: currently active Major depression episode severity: unspecified Major depression recurrence: unspecified whether recurrent Qualified Code(s): F32.9 - Major depressive disorder, single episode, unspecified (2) Alcohol withdrawal Complication of substance-induced condition: uncomplicated Qualified Code(s): F10.230 - Alcohol dependence with withdrawal, uncomplicated
[2018-09-24] MEDS: LORazepam 2 MG/4 ML VIAL IV PRN (19:29)
[2018-09-25] MEDS: THIAMINE HCL 100 MG TAB PO SCH ×2 (08:56→22:38)
[2018-09-25] MEDS: FOLIC ACID 400 MCG TAB PO SCH (08:56)
[2018-09-25] MEDS: ENOXAPARIN INJ 40 MG/0.4 ML SYR SQ SCH (08:56)
[2018-09-25] MEDS: LORazepam 0.5 MG/1 ML VIAL IV PRN ×3 (09:05→17:34)
[2018-09-25] MEDS: MULTIVITAMIN TAB PO SCH (09:22)
--- NOTE | 2018-09-25 16:31 | Hospitalist Progress Note ---
Date of Service September 25, 2018 Assessment & Plan (1) Alcohol withdrawal: Resolving / in latter stages. NO tremors today. Mental status very clear. Has not developed DTs this admission.. Severe intake at home - drinks either 12-pack beer/day and/or 1 L vodka. Continue gabapentin protocol. Ativan per alcohol withdrawal protocol - try to just use PO ativan today in preparation for d/c to mental health unit. Continue D5NS w/ KCL IV fluids 50cc/hour but possible d/c of them later today if eating better. Cont thiamine 200mg BID/MVI/folic acid. (2) Suicidal ideation: Attempted suicide by carbon monoxide poisoning and alcohol intoxication prior to hospital admission. 1:1 bedside sitter with suicide checks. Psych consult appreciated; will need inpatient psych treatment following alcohol withdrawal. Psychosocial stressors - mother recently, lost job 2 weeks ago, etc. Tx to inpatient psych on Wednesday? (3) Hypernatremia: resolved. Cont IVF due to etoh withdrawal and mild anorexia. (4) Hypokalemia: Resolved Mag and K continue to be normal. BMP and mag in am. (5) Major depression: appreciate psych consult alcoholism making his depression worse will need inpatient psych treatment following his medical stay for etoh withdrawal (6) Seborrhea: start desowen cream BID in thin amounts to facial seborrhea (7) DVT prophylaxis: lovenox daily patient encouraged to sit in chair multiple times today, ambulate with assistance, etc in preparation for ultimately going to mental health unit cont PT, OT spoke with psych liason today - possibly can go to psych Wednesday if withdrawal is complete and walking OK Subjective patient feels good today. didn't eat breakfast, however, stating he was "just not hungry." shakes and anxiety are better. is ambulating in room but continues to be shaky. tele - mainly NSR but some episodes of sinus tach. still has desire to get treatment in mental health unit post-d/c. asks if he "Could get a shave." Review of Systems Constitutional: + anorexia; no fever and no chills Respiratory: no dyspnea Cardiovascular: no chest pain Gastrointestinal: + diarrhea/loose stools (mild); no nausea and no vomiting Physical Exam Constitutional: average body habitus; no acute distress ENMT: external ear and nose normal, oropharynx normal Respiratory: normal respiratory effort, lungs clear to auscultation Cardiovascular: Rate/Rhythm: regular rate and regular rhythm Heart Sounds: normal S1 and normal S2; no murmur Vessels: posterior tibial pulses present and dorsalis pedis pulses present; no JVD Gastrointestinal (Abdomen): normal bowel sounds, soft, nontender, no hepatosplenomegaly Skin: + rash (seborrhea face) Neurologic: Motor/Sensory: no tremor Psychiatric: Orientation: alert and oriented x 3 Results & Data Vital Signs (Past 12 Hours) Vital Signs Temp Pulse Pulse Pulse Resp BP Pulse Ox 09/25/18 15:10 36.8 C 106 H 18 125/86 97 09/25/18 11:08 36.4 C L 79 16 133/84 96 09/25/18 08:20 80 09/25/18 08:13 36.4 C L 86 16 121/76 96 PG Care Time/CCT Total # of Minutes Spent Total Time Spent with Patient: Total time spent is greater than 50% in coordination of care (as documented) at patient's floor/unit and/or counseling patient: (1) Alcohol withdrawal Complication of substance-induced condition: uncomplicated Qualified Code(s): F10.230 - Alcohol dependence with withdrawal, uncomplicated (2) Major depression Major depression recurrence: unspecified whether recurrent Active/Remission status: currently active Major depression episode severity: unspecified Qualified Code(s): F32.9 - Major depressive disorder, single episode, unspecified
[2018-09-25] MEDS: DESONIDE CR 15 GM TUBE EXT SCH ×2 (18:11→22:37)
[2018-09-25] MEDS: D5NSS + 20MEQ KCL 20 MEQ/1,000 ML BAG IV SCH (20:06)
[2018-09-26] MEDS ORDERED: GABAPENTIN 600 MG TAB PO SCH
[2018-09-26 07:35] LABS: Calcium 9.4 mg/dl (8.5-10.1); Est GFR (African American) 121.1; Est GFR (Non-African American) 104.5; Potassium 3.6 mmol/L (3.5-5.1)
[2018-09-26] MEDS: THIAMINE HCL 100 MG TAB PO SCH ×2 (08:15→21:16)
[2018-09-26] MEDS: MULTIVITAMIN TAB PO SCH (08:15)
[2018-09-26] MEDS: FOLIC ACID 400 MCG TAB PO SCH (08:15)
[2018-09-26] MEDS: ENOXAPARIN INJ 40 MG/0.4 ML SYR SQ SCH (08:16)
[2018-09-26] MEDS: DESONIDE CR 15 GM TUBE EXT SCH ×2 (08:16→21:17)
[2018-09-26] MEDS: LORazepam 0.5 MG/1 ML VIAL IV PRN ×2 (08:25→14:11)
--- NOTE | 2018-09-26 08:31 | Hospitalist Progress Note ---
Date of Service September 26, 2018 Assessment & Plan (1) Alcohol withdrawal: Resolved no tremors general anxiety Mental status very clear. Has not developed DTs this admission.. Severe intake at home - drinks either 12-pack beer/day and/or 1 L vodka. has been enrolled in gabapentin protocol given unclear disposition will have scheduled librium and prn ativan until clear disposition Cont thiamine 200mg BID/MVI/folic acid. (2) Suicidal ideation: Attempted suicide by carbon monoxide poisoning and alcohol intoxication prior to hospital admission. 1:1 bedside sitter with suicide checks. Psych consult appreciated; will need inpatient psych treatment, medically cleared from alcohol withdrawal standpoint. Psychosocial stressors - mother recently, lost job 2 weeks ago, unclear housing situation (3) Hypernatremia: resolved. pt is eating and taking po (4) Hypokalemia: Resolved Mag and K continue to be normal. (5) Major depression: appreciate psych consult alcoholism making his depression worse will need inpatient psych treatment following his medical stay for suicide gesture (6) Seborrhea: start desowen cream BID in thin amounts to facial seborrhea (7) DVT prophylaxis: lovenox daily patient encouraged to sit in chair multiple times today, ambulate with assistance, etc in preparation for ultimately going to mental health unit cont PT, OT spoke with psych liason today - no beds available at [facility], will continue to look for bed placement Subjective pt only has complaints of anxiety mostly related to his disposition being unclear, he is agreeable to going to behavioral health for further treatment regarding suicidal thoughts Review of Systems Review of Systems: ROS: well nourished well developed. No double vision blurry vision No problems with speech or swallowing No palpitations, chest pain or pressure No Wheezing or breathing issues No abdominal pain nausea vomiting diarrhea changes in appetite or weight No burning urine urine frequency or changes in color No focal joint pain or muscle pain No skin rashes or oral lesions No unusual bruising or bleeding No focused back pain or numbness or loss of strength No changes in memory or confusion Physical Exam Physical Exam: The patient appeared well nourished and normally developed. Vital signs as documented. Head exam is unremarkable. normocephalic, atraumatic Neck is without jugular venous distension, thyromegaly, or lymphademopathy Lungs are clear to auscultation and percussion. Cardiac exam reveals Rhythm is regular. First and second heart sounds normal. Abdominal exam reveals normal bowel sounds, no masses, no organomegaly Extremities are nonedematous and both pedal pulses are present Neurologic exam is A&Ox3, no focal deficits, strength is equal bilateral Psychologically seems anxious and depressed Skin is warm Dry without bruises or lesions Results & Data Vital Signs (Past 12 Hours) Vital Signs Temp Pulse Resp BP Pulse Ox 09/26/18 07:27 36.4 C L 80 16 113/71 97 09/26/18 04:00 36.4 C L 69 17 109/73 94 09/26/18 00:08 36.8 C 80 17 143/97 H 96 PG Care Time/CCT Total # of Minutes Spent Total Time Spent with Patient: Total time spent is greater than 50% in coor dination of care (as documented) at patient's floor/unit and/or counseling patient: (1) Major depression Active/Remission status: currently active Major depression episode severity: unspecified Major depression recurrence: unspecified whether recurrent Qualified Code(s): F32.9 - Major depressive disorder, single episode, unspecified (2) Alcohol withdrawal Complication of substance-induced condition: uncomplicated Qualified Code(s): F10.230 - Alcohol dependence with withdrawal, uncomplicated
[2018-09-26] MEDS ORDERED: LORazepam 0.5 MG TAB PO STA (22:27)
[2018-09-27] MEDS: THIAMINE HCL 100 MG TAB PO SCH (08:07)
[2018-09-27] MEDS: FOLIC ACID 400 MCG TAB PO SCH (08:07)
[2018-09-27] MEDS: ENOXAPARIN INJ 40 MG/0.4 ML SYR SQ SCH (08:08)
[2018-09-27] MEDS: MULTIVITAMIN TAB PO SCH (08:08)
[2018-09-27] MEDS: DESONIDE CR 15 GM TUBE EXT SCH (08:08)
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
== END 2018-09-27 15:00 | DRG 880 ==
LOC: ED 07:40 → SUATTDRO 16:57 → 2S 16:57